=== PATIENT | female | born 1985 | race Hispanic/Latino ===

== ENCOUNTER 2019-12-27 23:41 | Emergency (ER) | payer MEDICAID, OTHER ==
[~2019-12-27 23:41] MED LIST: PREN1TAB80 PO
[2019-12-28 00:22] LABS: RAPID GROUP A STREP NEGATIVE (NEGATIVE)
[2019-12-28 01:22] LABS: HCG,QUAL RESULT NEGATIVE (NEGATIVE)
[2019-12-28 01:23] LABS: APPEARANCE,URINE Clear (CLEAR); BILIRUBIN,URINE Negative (NEGATIVE); COLOR,URINE Yellow (YELLOW); GLUCOSE, URINE (UA) Negative (NEGATIVE); KETONES,URINE Negative (NEGATIVE); LEUKOCYTE ESTERASE ,URINE Negative (NEGATIVE); NITRATE,URINE Negative (NEGATIVE); OCCULT BLOOD,URINE Negative (NEGATIVE); PH,URINE 5.5 (5.0-8.0); PROTEIN,URINE Negative (NEGATIVE)
== END 2019-12-28 01:46 | disposition home or self-care (01) ==
LOC: EDH 23:41
DX: B34.9 Viral infection, unspecified (principal); J45.909 Unspecified asthma, uncomplicated
CPT/HCPCS: 81003; 81025; 87804; 87880